=== PATIENT | male | born 1995 | race African-American/Black ===

== ENCOUNTER 2018-04-21 19:58 | Emergency (ER) | payer OTHER ==
[2018-04-21 20:31] VITALS: BP 104/66
--- NOTE | 2018-04-21 21:01 | UC ---
Throat Pain/Nasal Danny HPI - HPI Summary HPI Summary: Pt presents with c/o sore throat, nasal congestion, myalgia and generalized malaise X 2 days. - History of Current Complaint Chief Complaint: UCRespiratory Stated Complaint: SORE THROAT/COUGH Time Seen by Provider: 04/21/18 20:36 Hx Obtained From: Patient Onset/Duration: Sudden Onset, Lasting Days, Still Present Severity: Moderate Pain Intensity: 4 Cough: Nonproductive Associated Signs & Symptoms: Positive: Dysphagia, Sinus Discomfort, Nasal Discharge - Epiglottits Risk Factors Epiglottis Risk Factors: Negative - Allergies/Home Medications Allergies/Adverse Reactions: Allergies Allergy/AdvReac Type Severity Reaction Status Date / Time ENVIROMENTAL Allergy Unknown Unknown Uncoded 04/21/18 20:19 Reaction Details Home Medications: Home Medications D-Methorphan/PE/Acetaminophen [Theraflu Expressmax Sever 20-10-650 mg/30Ml] 1 liq PO PRN 04/21/18 [History] PMH/Surg Hx/FS Hx/Imm Hx Previously Healthy: Yes - Surgical History Surgical History: None - Family History Known Family History: Positive: Cardiac Disease - Social History Occupation: Student - [employer] Lives: Dormitory/Roommates Alcohol Use: Occasionally Substance Use Type: None Smoking Status (MU): Never Smoked Tobacco Type: eCigarettes Have You Smoked in the Last Year: No - ecigarettes - Immunization History Vaccination Up to Date: Yes Review of Systems Constitutional: Chills, Fatigue Skin: Negative Eyes: Negative ENT: Sore Throat, Nasal Discharge, Sinus Congestion Respiratory: Cough Cardiovascular: Negative Gastrointestinal: Negative Genitourinary: Negative Motor: Negative Neurovascular: Negative Musculoskeletal: Myalgia Neurological: Negative Psychological: Negative Is Patient Immunocompromised?: No All Other Systems Reviewed And Are Negative: Yes Physical Exam Triage Information Reviewed: Yes Appearance: Ill-Appearing Vital Signs: Initial Vital Signs Temp 98.6 F 04/21/18 20:21 Pulse 65 04/21/18 20:21 Resp 20 04/21/18 20:21 BP 104/66 04/21/18 20:21 Pulse Ox 99 04/21/18 20:21 Eye Exam: Normal ENT: Positive: Nasal congestion, Tonsillar swelling Dental Exam: Normal Neck exam: Normal Respiratory Exam: Normal Respiratory: Positive: Normal breath sounds Cardiovascular Exam: Normal Musculoskeletal Exam: Normal Neurological Exam: Normal Psychological Exam: Normal Skin Exam: Normal Diagnostics - Laboratory Diagnostic Studies Completed/Ordered: rapid strep: negative Throat Pain/Nasal Course/Dx - Differential Dx/Diagnosis Differential Diagnosis/HQI/PQRI: Mononucleosis, Pharyngitis, Tonsillitis, URI Provider Diagnoses: viral syndrome Discharge - Sign-Out/Discharge Documenting (check all that apply): Patient Departure All imaging exams completed and their final reports reviewed: No Studies - Discharge Plan Condition: Stable Disposition: HOME Patient Education Materials: Pseudoephedrine (By mouth), Viral Syndrome (ED) Forms: *Physical Education Release Referrals: [facility] [Outside] - If Needed No Primary Care Phys,NOPCP [Primary Care Provider] - - Billing Disposition and Condition Condition: STABLE Disposition: Home
== END 2018-04-21 21:10 | disposition home or self-care (01) ==
LOC: UCCORT 19:58
DX: B34.9 Viral infection, unspecified (principal)
CPT/HCPCS: 87651; 99201; G0463

== ENCOUNTER 2018-12-17 09:58 | Emergency (ER) | payer MEDICAID, OTHER ==
--- NOTE | 2018-12-17 10:20 | UC ---
Throat Pain/Nasal Dnany HPI - HPI Summary HPI Summary: Patient presents to urgent care for sore throat. Patient states for 4-5 days he 's had sinus congestion, postnasal drip, sore throat. Patient states this morning he woke up and felt like his tonsils are swollen as has happened in the past. Patient does have exudate on his tonsils he noted this morning. Patient reports tactile temperatures. Patient's been taking [id number] cough and cold medication with little improvement. Patient states he's been very tired and difficulty getting out of bed. No nausea vomiting. No abdominal pain. Patient denies shortness of breath or cough. Patient does have sick contacts. 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 Patient's medications reviewed this visit - History of Current Complaint Stated Complaint: SWOLLEN TONSILS Time Seen by Provider: 12/17/18 10:15 Hx Obtained From: Patient - Allergies/Home Medications Allergies/Adverse Reactions: Allergies Allergy/AdvReac Type Severity Reaction Status Date / Time ENVIROMENTAL Allergy Unknown Unknown Uncoded 12/17/18 10:12 Reaction Details Home Medications: Home Medications D-Methorphan/PE/Acetaminophen [Vicks Dayquil Cold & Flu 10-5-325 mg/15Ml] 1 liq PO PRN 12/17/18 [History] Dextromethorphn/Acetaminoph/Cp [Vicks Nyquil Cold & Flu N] 1 liq PO PRN [History] PMH/Surg Hx/FS Hx/Imm Hx Previously Healthy: Yes - Surgical History Surgical History: None - Family History Known Family History: Positive: Cardiac Disease, Non-Contributory - Social History Occupation: Student Lives: Dormitory/Roommates Alcohol Use: Occasionally Substance Use Type: None Smoking Status (MU): Never Smoked Tobacco Type: eCigarettes Have You Smoked in the Last Year: No - ecigarettes - Immunization History Vaccination Up to Date: Yes Review of Systems All Other Systems Reviewed And Are Negative: Yes Constitutional: Positive: Fever, Fatigue ENT: Positive: Sore Throat, Nasal Discharge, Sinus Congestion, Sinus Pain/ Tenderness Respiratory: Positive: Negative Cardiovascular: Positive: Negative Physical Exam - Summary Physical Exam Summary: Vital Signs Reviewed: Yes A+Ox3, no distress Eyes: Conjunctiva Clear, MIRANDA. EOM intact and full ENT: Hearing grossly normal TM x 2 clear, turbinates inflammed and boggy, + max sinus discomfort+ PND, mmoist, uvula midline, + exudate R>L, tonisllar enlargement - symmetric, + diffuse eythema Neck: Positive: Supple, + submandibular LA R>L Respiratory: Positive: No respiratory distress, No accessory muscle use + CTA throughout no w/r Cardiovascular: RRR nl s1, s2 no m/r CBT <2 sec abd soft + BS nt/nd no guarding, no distension Musculoskeletal Exam: WILDER x 4 without difficulty Strength Intact, ROM Intact Neurological: Positive: Alert, + sensation throughout Psychological: Positive: Normal Response To Family Skin: Positive: no rash, no ecchymosis Triage Information Reviewed: Yes Throat Pain/Nasal Course/Dx - Course Course Of Treatment: Patient presents to urgent care with 5 days of progressive sinus congestion postnasal drip sore throat tactile fevers. Patient's been taking over-the- counter medication with little improvement. Patient states today he noticed that his tonsils were swollen and painful swallowing. No drooling. Patient's vital signs are stable. Patient without difficulty with secretions or talking. Patient with inflamed boggy turbinates postnasal drip inflamed tonsils with exudate right more than left. Patient does have submandibular lymphadenopathy. Patient's rapid strep is negative. Given patient's exam, finals, will start patient on prednisone as well as antibiotics to treat sinus and tonsillitis. Gargle spit warm salt water, Flonase, school note today. Motrin Tylenol. Patient has states comfort agreement with plan. - Differential Dx/Diagnosis Provider Diagnosis: Rhinosinusitis, Acute tonsillitis Discharge - Sign-Out/Discharge Documenting (check all that apply): Patient Departure All imaging exams completed and their final reports reviewed: No Studies - Discharge Plan Condition: Stable Disposition: HOME Prescriptions: Amoxicillin/Clavulanate TAB* [Augmentin TAB 875*] 875 mg PO BID #20 tab Fluticasone NASAL SPRAY 50MCG* [Flonase NASAL SPRAY 50MCG*] 2 spray BOTH NARES DAILY #1 btl predniSONE TAB* [Deltasone TAB*] 50 mg PO DAILY #5 tab Patient Education Materials: Rhinosinusitis (ED), Tonsillitis (ED) Forms: *School Release Referrals: No Primary Care Phys,NOPCP [Primary Care Provider] - Additional Instructions: - Okay to alternate ibuprofen (Advil, Motrin) and Tylenol every 3 hours for pain. Take with food. Do NOT take for more than 4-5 days - Okay to gargle and spit warm salt water every 4 hours as needed for pain - Stay well hydrated - frequent sips of cold fluids will be soothing to your throat (popsicles, jello, ice cream, ice water). Avoid excess caffeine until your symptoms have resolved. -Throat infections are spread by oral secretions - do not share eating or drinking utensils until you symptoms are resolved. Clean items that may get your secretions such as cell phones, ipads, computer mouse, television remotes. Once you have been on antibiotics for 2 days, change your toothbrush and your pillowcase. - use nasal spray as prescribed - humidify the air in the room where you sleep - boil water, run a hot steam shower, vaporizer, cups of water by heat register - Okay to take over the counter cough and decongestant medication - Contact your doctor to arrange a follow-up appointment as needed - Billing Disposition and Condition Condition: STABLE Disposition: Home
[2018-12-17 10:24] VITALS: BP 112/65
== END 2018-12-17 11:00 | disposition home or self-care (01) ==
LOC: UCCORT 09:58
DX: J32.9 Chronic sinusitis, unspecified (principal); J03.90 Acute tonsillitis, unspecified; Z91.09 Other allergy status, other than to drugs and biological substances
CPT/HCPCS: 87651; 99212; G0463